=== PATIENT | male | born 1935 | race Caucasian/White ===

== ENCOUNTER 2022-02-14 12:12 | Inpatient (IN) ==
[2022-02-14] MEDS ORDERED: MAGNESIUM HYDROXIDE SUSP 30 ML UDCUP PO PRN (12:37)
[2022-02-14] MEDS ORDERED: ONDANSETRON 4 MG/2 ML VIAL IV PRN (12:37)
[2022-02-14 14:57] LABS: Basophils # 0.1 10*3/uL (0.0-0.2); Basophils % 1.3 % (0.0-0.8); Eosinophils # 0.8 10*3/uL (0.0-0.87); Eosinophils % 8.7 % (0.00-10.9); Hematocrit 30.1 VOL% (42.0-52.0); Hemoglobin 9.9 GM/DL (14.0-18.0); Immature Granulocytes % 1.8 %; Immature Granulocytes Absolute 0.17 #; Lymphocytes # 3.1 10*3/uL (1.4-4.0); Lymphocytes % 33.2 % (21.2-54.2); Mean Corpuscular HGB Conc 32.9 GM/DL (32-36); Mean Corpuscular Volume 91.8 FL (87-102); Mean Platelet Volume 9.1 FL (9.6-12.0); Monocytes # 0.9 10*3/uL (0.11-0.8); Monocytes % 9.6 % (1.7-12.7); Neutrophils % 45.4 % (38.7-73.9); Platelet Count 281 T/CUMM (130-400); Red Blood Count 3.28 MC/CUMM (3.8-5.5); White Blood Count 9.2 T/CUMM (4-12)
[2022-02-14] MEDS ORDERED: GABAPENTIN 100 MG CAPSULE PO SCH (15:00)
[2022-02-14 15:16] LABS: Alanine Aminotransferase 22 U/L (16-61); Albumin 3.1 G/DL (3.4-5.0); Alkaline Phosphatase 93 U/L (45-117); Aspartate Amino Transferase 22 U/L (0-37); Bilirubin,Total < 0.39 MG/DL (0.20-1.00); Blood Urea Nitrogen 41 MG/DL (7-18); Calcium 8.4 MG/DL (8.5-10.1); Carbon Dioxide 31 MMOL/L (21-32); Chloride 102 MMOL/L (98-107); Estimated Glom Filtration Rate 39 ML/MIN; Glucose 107 MG/DL (74-106); Osmolality,Calculated 284.7 MOS/KG (273-304); Potassium 4.1 MMOL/L (3.5-5.1); Sodium 138 MMOL/L (136-145); Total Protein 6.8 G/DL (6.4-8.2)
[2022-02-14] MEDS: gemfibroziL 600 MG TABLET PO SCH (16:00)
[2022-02-14] MEDS: SODIUM CHLORIDE 0.45% 1,000 ML IV SCH (16:00)
[2022-02-14] MEDS: cefTRIAXone 1,000 MG in SODIUM CHLORIDE 0.9% 100 ML IV SCH (16:00)
[2022-02-14] MEDS: TAMSULOSIN 0.4 MG CAPSULE PO SCH (20:22)
[2022-02-14] MEDS: NIACIN ER 500 MG TABLET PO SCH (20:22)
[2022-02-14] MEDS: GABAPENTIN 100 MG CAPSULE PO SCH (20:22)
[2022-02-14] MEDS: DOCUSATE SODIUM 100 MG CAPSULE PO SCH (20:22)
[2022-02-14] MEDS: ARIPiprazole 5 MG TABLET PO SCH (20:22)
[2022-02-15] MEDS: SODIUM CHLORIDE 0.45% 1,000 ML IV SCH ×2 (01:15→10:20)
[2022-02-15 04:39] LABS: Basophils # 0.1 10*3/uL (0.0-0.2); Eosinophils # 0.6 10*3/uL (0.0-0.87); Eosinophils % 8.3 % (0.00-10.9); Hematocrit 28.4 VOL% (42.0-52.0); Immature Granulocytes % 1.9 %; Immature Granulocytes Absolute 0.15 #; Lymphocytes # 2.7 10*3/uL (1.4-4.0); Lymphocytes % 34.7 % (21.2-54.2); Mean Corpuscular HGB Conc 31.7 GM/DL (32-36); Mean Corpuscular Volume 92.5 FL (87-102); Mean Platelet Volume 9.5 FL (9.6-12.0); Monocytes # 0.7 10*3/uL (0.11-0.8); Neutrophils % 45.1 % (38.7-73.9); Platelet Count 260 T/CUMM (130-400); Red Blood Count 3.07 MC/CUMM (3.8-5.5); White Blood Count 7.8 T/CUMM (4-12)
[2022-02-15 05:00] LABS: Risk Ratio 2.35; VLDL Cholesterol 24.4 MG/DL
[2022-02-15 05:05] LABS: Alanine Aminotransferase 19 U/L (16-61); Albumin 2.7 G/DL (3.4-5.0); Alkaline Phosphatase 85 U/L (45-117); Aspartate Amino Transferase 18 U/L (0-37); Bilirubin,Total < 0.39 MG/DL (0.20-1.00); Blood Urea Nitrogen 33 MG/DL (7-18); Calcium 7.9 MG/DL (8.5-10.1); Carbon Dioxide 28 MMOL/L (21-32); Chloride 104 MMOL/L (98-107); Estimated Glom Filtration Rate 45 ML/MIN; Glucose 88 MG/DL (74-106); Osmolality,Calculated 282.5 MOS/KG (273-304); Potassium 3.7 MMOL/L (3.5-5.1); Sodium 139 MMOL/L (136-145); Total Protein 6.1 G/DL (6.4-8.2)
[2022-02-15] MEDS: PANTOPRAZOLE 40 MG TABLET PO SCH (05:57)
[2022-02-15] MEDS ORDERED: LEVOTHYROXINE 125 MCG TABLET PO SCH (06:30)
[2022-02-15 06:32] LABS: Sedimentation Rate-Westergren 37 MM/HR (0-20)
[2022-02-15] MEDS ORDERED: ENOXAPARIN 30 MG/0.3 ML SYRINGE SUBCUT SCH (09:00)
[2022-02-15] MEDS: DOCUSATE SODIUM 100 MG CAPSULE PO SCH ×2 (09:53→21:19)
[2022-02-15] MEDS: gemfibroziL 600 MG TABLET PO SCH ×2 (09:53→17:02)
[2022-02-15] MEDS: GABAPENTIN 100 MG CAPSULE PO SCH ×4 (09:54→21:19)
[2022-02-15] MEDS: VENLAFAXINE XR 75 MG CAPSULE PO SCH (09:54)
[2022-02-15] MEDS: TAMSULOSIN 0.4 MG CAPSULE PO SCH ×2 (09:54→21:19)
[2022-02-15] MEDS: METOPROLOL SUCCINATE XL 25 MG TABLET PO SCH (09:54)
[2022-02-15] MEDS: fentaNYL 50 MCG/HR PATCH TRANSDERM SCH (10:19)
[2022-02-15] MEDS ORDERED: KETAMINE 500 MG/10 ML VIAL ONE (12:00)
[2022-02-15] MEDS ORDERED: LACTATED RINGERS 1,000 ML IV SCH (12:00)
[2022-02-15] MEDS ORDERED: fentaNYL 100 MCG/2 ML VIAL ONE (12:00)
[2022-02-15] MEDS ORDERED: ETOMIDATE 40 MG/20 ML VIAL IV ONE (12:03)
[2022-02-15] MEDS ORDERED: SEVOFLURANE 1 UNIT/15 MINUTE INH ONE (12:03)
[2022-02-15] MEDS ORDERED: LIDOCAINE 2% 5 ML VIAL ONE (12:03)
[2022-02-15] MEDS ORDERED: propofoL 200 MG/20 ML VIAL IV ONE (12:03)
[2022-02-15] MEDS ORDERED: HYDROmorphone 1 MG/1 ML SYRINGE ONE (13:07)
[2022-02-15] MEDS ORDERED: HYDROmorphone 1 MG/1 ML SYRINGE IV PRN (13:12)
[2022-02-15] MEDS: cefTRIAXone 1,000 MG in SODIUM CHLORIDE 0.9% 100 ML IV SCH (14:58)
[2022-02-15] MEDS: oxyCODONE IR 5 MG TABLET PO PRN ×2 (15:00→22:44)
[2022-02-15] MEDS: ARIPiprazole 5 MG TABLET PO SCH (21:18)
[2022-02-15] MEDS: NIACIN ER 500 MG TABLET PO SCH (21:19)
[2022-02-16 04:53] LABS: Basophils # 0.1 10*3/uL (0.0-0.2); Basophils % 0.9 % (0.0-0.8); Eosinophils # 0.6 10*3/uL (0.0-0.87); Eosinophils % 8.1 % (0.00-10.9); Hematocrit 30.3 VOL% (42.0-52.0); Hemoglobin 9.5 GM/DL (14.0-18.0); Immature Granulocytes % 1.9 %; Immature Granulocytes Absolute 0.14 #; Lymphocytes # 2.6 10*3/uL (1.4-4.0); Lymphocytes % 35.1 % (21.2-54.2); Mean Corpuscular HGB Conc 31.4 GM/DL (32-36); Mean Corpuscular Volume 93.5 FL (87-102); Mean Platelet Volume 9.2 FL (9.6-12.0); Monocytes # 0.6 10*3/uL (0.11-0.8); Monocytes % 7.4 % (1.7-12.7); Neutrophils % 46.6 % (38.7-73.9); Platelet Count 261 T/CUMM (130-400); Red Blood Count 3.24 MC/CUMM (3.8-5.5); White Blood Count 7.4 T/CUMM (4-12)
[2022-02-16 05:23] LABS: Calcium 8.1 MG/DL (8.5-10.1); Osmolality,Calculated 282.3 MOS/KG (273-304)
[2022-02-16] MEDS: LEVOTHYROXINE 137 MCG TABLET PO SCH (06:34)
[2022-02-16] MEDS: PANTOPRAZOLE 40 MG TABLET PO SCH (06:34)
[2022-02-16] MEDS: oxyCODONE IR 5 MG TABLET PO PRN ×2 (07:10→14:20)
[2022-02-16] MEDS: gemfibroziL 600 MG TABLET PO SCH ×2 (10:28→18:32)
[2022-02-16] MEDS: METOPROLOL SUCCINATE XL 25 MG TABLET PO SCH (10:29)
[2022-02-16] MEDS: VENLAFAXINE XR 75 MG CAPSULE PO SCH (10:29)
[2022-02-16] MEDS: DOCUSATE SODIUM 100 MG CAPSULE PO SCH ×2 (10:29→20:40)
[2022-02-16] MEDS: GABAPENTIN 100 MG CAPSULE PO SCH ×4 (10:29→20:40)
[2022-02-16] MEDS: TAMSULOSIN 0.4 MG CAPSULE PO SCH ×2 (10:29→20:40)
[2022-02-16] MEDS: SODIUM CHLORIDE 0.45% 1,000 ML IV SCH ×2 (14:19)
[2022-02-16] MEDS: cefTRIAXone 1,000 MG in SODIUM CHLORIDE 0.9% 100 ML IV SCH (14:19)
[2022-02-16] MEDS: ARIPiprazole 5 MG TABLET PO SCH (20:40)
[2022-02-16] MEDS: ACETAMINOPHEN 325 MG TABLET PO PRN (20:40)
[2022-02-16] MEDS: NIACIN ER 500 MG TABLET PO SCH (20:40)
[2022-02-16 23:00] LABS: RBC,Urine 1 /HPF (0-4)
[2022-02-16 23:01] LABS: Bilirubin,Urine Negative (Negative); Blood, Urine Negative (Negative); Glucose,Urine (UA) Negative (Negative); Ketones,Urine Negative (Negative); Nitrite,Urine Negative (Negative); Protein,Urine Negative (Negative); Urine Appearance Clear (Clear); Urine Color Yellow (Yellow); Urine Specific Gravity 1.015 (1.001-1.035); Urine Urobilinogen 0.2 eU/dL (<2.0)
[2022-02-17] MEDS: SODIUM CHLORIDE 0.45% 1,000 ML IV SCH ×3 (00:10→21:33)
[2022-02-17 05:52] LABS: Basophils # 0.1 10*3/uL (0.0-0.2); Basophils % 1.2 % (0.0-0.8); Eosinophils # 0.5 10*3/uL (0.0-0.87); Eosinophils % 8.1 % (0.00-10.9); Hematocrit 29.1 VOL% (42.0-52.0); Hemoglobin 9.2 GM/DL (14.0-18.0); Immature Granulocytes Absolute 0.13 #; Lymphocytes # 2.6 10*3/uL (1.4-4.0); Lymphocytes % 40.6 % (21.2-54.2); Mean Corpuscular HGB Conc 31.6 GM/DL (32-36); Mean Corpuscular Volume 92.4 FL (87-102); Mean Platelet Volume 9.6 FL (9.6-12.0); Monocytes # 0.6 10*3/uL (0.11-0.8); Monocytes % 8.9 % (1.7-12.7); Neutrophils % 39.2 % (38.7-73.9); Platelet Count 257 T/CUMM (130-400); Red Blood Count 3.15 MC/CUMM (3.8-5.5); Red Cell Distribution Width 13.8 % (9.3-17.3); White Blood Count 6.5 T/CUMM (4-12)
[2022-02-17] MEDS: LEVOTHYROXINE 137 MCG TABLET PO SCH (06:13)
[2022-02-17] MEDS: PANTOPRAZOLE 40 MG TABLET PO SCH (06:13)
[2022-02-17 06:35] LABS: Alanine Aminotransferase 14 U/L (16-61); Albumin 2.6 G/DL (3.4-5.0); Alkaline Phosphatase 81 U/L (45-117); Aspartate Amino Transferase 17 U/L (0-37); Bilirubin,Total < 0.39 MG/DL (0.20-1.00); Blood Urea Nitrogen 15 MG/DL (7-18); Calcium 7.9 MG/DL (8.5-10.1); Carbon Dioxide 26 MMOL/L (21-32); Chloride 107 MMOL/L (98-107); Estimated Glom Filtration Rate 70 ML/MIN; Glucose 93 MG/DL (74-106); Osmolality,Calculated 279.4 MOS/KG (273-304); Potassium 3.7 MMOL/L (3.5-5.1); Sodium 140 MMOL/L (136-145); Total Protein 5.8 G/DL (6.4-8.2)
[2022-02-17] MEDS: TAMSULOSIN 0.4 MG CAPSULE PO SCH ×2 (09:16→21:34)
[2022-02-17] MEDS: gemfibroziL 600 MG TABLET PO SCH ×2 (09:16→16:52)
[2022-02-17] MEDS: METOPROLOL SUCCINATE XL 25 MG TABLET PO SCH (09:16)
[2022-02-17] MEDS: DOCUSATE SODIUM 100 MG CAPSULE PO SCH ×2 (09:16→21:34)
[2022-02-17] MEDS: GABAPENTIN 100 MG CAPSULE PO SCH ×4 (09:17→21:35)
[2022-02-17] MEDS: VENLAFAXINE XR 75 MG CAPSULE PO SCH (09:20)
[2022-02-17] MEDS ORDERED: TUBERCULIN SKIN TEST 0.1 ML SYRINGE INTRADERM ONE (10:00)
[2022-02-17] MEDS: oxyCODONE IR 5 MG TABLET PO PRN ×2 (14:49→22:45)
[2022-02-17] MEDS: cefTRIAXone 1,000 MG in SODIUM CHLORIDE 0.9% 100 ML IV SCH (14:49)
[2022-02-17] MEDS: cloNIDine 0.1 MG TABLET PO SCH (21:34)
[2022-02-17] MEDS: NIACIN ER 500 MG TABLET PO SCH (21:34)
[2022-02-17] MEDS: ARIPiprazole 5 MG TABLET PO SCH (21:34)
[2022-02-18 05:52] LABS: Basophils # 0.1 10*3/uL (0.0-0.2); Eosinophils # 0.5 10*3/uL (0.0-0.87); Eosinophils % 5.8 % (0.00-10.9); Hematocrit 28.5 VOL% (42.0-52.0); Hemoglobin 9.2 GM/DL (14.0-18.0); Immature Granulocytes % 2.9 %; Immature Granulocytes Absolute 0.25 #; Lymphocytes % 34.2 % (21.2-54.2); Mean Corpuscular HGB Conc 32.3 GM/DL (32-36); Mean Corpuscular Volume 93.4 FL (87-102); Mean Platelet Volume 9.7 FL (9.6-12.0); Monocytes # 0.8 10*3/uL (0.11-0.8); Monocytes % 9.1 % (1.7-12.7); Platelet Count 272 T/CUMM (130-400); Red Blood Count 3.05 MC/CUMM (3.8-5.5); White Blood Count 8.8 T/CUMM (4-12)
[2022-02-18 06:06] LABS: Calcium 8.5 MG/DL (8.5-10.1); Osmolality,Calculated 275.7 MOS/KG (273-304); Potassium 4.1 MMOL/L (3.5-5.1)
[2022-02-18] MEDS: LEVOTHYROXINE 137 MCG TABLET PO SCH (06:10)
[2022-02-18] MEDS: PANTOPRAZOLE 40 MG TABLET PO SCH (06:10)
[2022-02-18] MEDS: SODIUM CHLORIDE 0.45% 1,000 ML IV SCH ×2 (09:08→22:12)
[2022-02-18] MEDS: TAMSULOSIN 0.4 MG CAPSULE PO SCH ×2 (09:09→22:13)
[2022-02-18] MEDS: gemfibroziL 600 MG TABLET PO SCH ×2 (09:09→15:53)
[2022-02-18] MEDS: DOCUSATE SODIUM 100 MG CAPSULE PO SCH ×2 (09:09→22:13)
[2022-02-18] MEDS: GABAPENTIN 100 MG CAPSULE PO SCH ×4 (09:10→22:13)
[2022-02-18] MEDS: fentaNYL 50 MCG/HR PATCH TRANSDERM SCH (09:10)
[2022-02-18] MEDS: METOPROLOL SUCCINATE XL 25 MG TABLET PO SCH (09:10)
[2022-02-18] MEDS: VENLAFAXINE XR 75 MG CAPSULE PO SCH (09:10)
[2022-02-18] MEDS: cefTRIAXone 1,000 MG in SODIUM CHLORIDE 0.9% 100 ML IV SCH (15:53)
[2022-02-18] MEDS: oxyCODONE IR 5 MG TABLET PO PRN (17:45)
[2022-02-18] MEDS: cloNIDine 0.1 MG TABLET PO SCH (22:13)
[2022-02-18] MEDS: NIACIN ER 500 MG TABLET PO SCH (22:13)
[2022-02-18] MEDS: ARIPiprazole 5 MG TABLET PO SCH (22:13)
[2022-02-19 05:14] LABS: Basophils # 0.1 10*3/uL (0.0-0.2); Basophils % 1.2 % (0.0-0.8); Eosinophils # 0.6 10*3/uL (0.0-0.87); Eosinophils % 6.7 % (0.00-10.9); Hematocrit 30.6 VOL% (42.0-52.0); Hemoglobin 9.7 GM/DL (14.0-18.0); Immature Granulocytes % 2.2 %; Immature Granulocytes Absolute 0.21 #; Lymphocytes # 2.8 10*3/uL (1.4-4.0); Lymphocytes % 29.9 % (21.2-54.2); Mean Corpuscular HGB Conc 31.7 GM/DL (32-36); Mean Corpuscular Volume 92.7 FL (87-102); Mean Platelet Volume 9.6 FL (9.6-12.0); Monocytes # 0.7 10*3/uL (0.11-0.8); Monocytes % 7.8 % (1.7-12.7); Neutrophils % 52.2 % (38.7-73.9); Platelet Count 285 T/CUMM (130-400); Red Cell Distribution Width 14.1 % (9.3-17.3); White Blood Count 9.5 T/CUMM (4-12)
[2022-02-19 05:35] LABS: Calcium 8.5 MG/DL (8.5-10.1); Osmolality,Calculated 281.4 MOS/KG (273-304)
[2022-02-19] MEDS: PANTOPRAZOLE 40 MG TABLET PO SCH (05:51)
[2022-02-19] MEDS: LEVOTHYROXINE 137 MCG TABLET PO SCH (05:51)
[2022-02-19] MEDS: SODIUM CHLORIDE 0.45% 1,000 ML IV SCH ×2 (09:22→21:15)
[2022-02-19] MEDS: VENLAFAXINE XR 75 MG CAPSULE PO SCH (09:23)
[2022-02-19] MEDS: TAMSULOSIN 0.4 MG CAPSULE PO SCH ×2 (09:23→21:15)
[2022-02-19] MEDS: gemfibroziL 600 MG TABLET PO SCH ×2 (09:23→17:07)
[2022-02-19] MEDS: DOCUSATE SODIUM 100 MG CAPSULE PO SCH ×2 (09:23→21:15)
[2022-02-19] MEDS: GABAPENTIN 100 MG CAPSULE PO SCH ×4 (09:23→21:15)
[2022-02-19] MEDS: METOPROLOL SUCCINATE XL 25 MG TABLET PO SCH (09:23)
[2022-02-19] MEDS: cefTRIAXone 1,000 MG in SODIUM CHLORIDE 0.9% 100 ML IV SCH (15:03)
[2022-02-19] MEDS: ARIPiprazole 5 MG TABLET PO SCH (21:15)
[2022-02-19] MEDS: NIACIN ER 500 MG TABLET PO SCH (21:16)
[2022-02-19] MEDS: oxyCODONE IR 5 MG TABLET PO PRN (21:16)
[2022-02-19] MEDS: cloNIDine 0.1 MG TABLET PO SCH (21:16)
[2022-02-20 04:59] LABS: Basophils # 0.1 10*3/uL (0.0-0.2); Basophils % 1.1 % (0.0-0.8); Eosinophils # 0.7 10*3/uL (0.0-0.87); Eosinophils % 7.2 % (0.00-10.9); Hematocrit 27.1 VOL% (42.0-52.0); Hemoglobin 8.4 GM/DL (14.0-18.0); Immature Granulocytes % 2.2 %; Lymphocytes # 3.2 10*3/uL (1.4-4.0); Lymphocytes % 34.7 % (21.2-54.2); Mean Corpuscular Volume 95.1 FL (87-102); Mean Platelet Volume 9.6 FL (9.6-12.0); Monocytes # 0.8 10*3/uL (0.11-0.8); Monocytes % 9.2 % (1.7-12.7); Neutrophils % 45.6 % (38.7-73.9); Platelet Count 268 T/CUMM (130-400); Red Blood Count 2.85 MC/CUMM (3.8-5.5); Red Cell Distribution Width 14.5 % (9.3-17.3); White Blood Count 9.1 T/CUMM (4-12)
[2022-02-20 05:19] LABS: Calcium 8.1 MG/DL (8.5-10.1); Osmolality,Calculated 280.5 MOS/KG (273-304); Potassium 3.8 MMOL/L (3.5-5.1)
[2022-02-20] MEDS: LEVOTHYROXINE 137 MCG TABLET PO SCH (05:49)
[2022-02-20] MEDS: PANTOPRAZOLE 40 MG TABLET PO SCH (05:49)
[2022-02-20] MEDS: GABAPENTIN 100 MG CAPSULE PO SCH ×4 (09:24→20:59)
[2022-02-20] MEDS: gemfibroziL 600 MG TABLET PO SCH ×2 (09:24→17:55)
[2022-02-20] MEDS: TAMSULOSIN 0.4 MG CAPSULE PO SCH ×2 (09:24→20:58)
[2022-02-20] MEDS: METOPROLOL SUCCINATE XL 25 MG TABLET PO SCH (09:24)
[2022-02-20] MEDS: VENLAFAXINE XR 75 MG CAPSULE PO SCH (09:24)
[2022-02-20] MEDS: DOCUSATE SODIUM 100 MG CAPSULE PO SCH ×2 (09:24→20:58)
[2022-02-20] MEDS: SODIUM CHLORIDE 0.45% 1,000 ML IV SCH ×2 (10:00→23:00)
[2022-02-20] MEDS: cefTRIAXone 1,000 MG in SODIUM CHLORIDE 0.9% 100 ML IV SCH (14:57)
[2022-02-20] MEDS: ACETAMINOPHEN 325 MG TABLET PO PRN (15:30)
[2022-02-20] MEDS: ARIPiprazole 5 MG TABLET PO SCH (20:58)
[2022-02-20] MEDS: oxyCODONE IR 5 MG TABLET PO PRN (20:59)
[2022-02-20] MEDS: cloNIDine 0.1 MG TABLET PO SCH (21:00)
[2022-02-20] MEDS: NIACIN ER 500 MG TABLET PO SCH (23:01)
[2022-02-21] MEDS: SODIUM CHLORIDE 0.45% 1,000 ML IV SCH ×3 (06:33→21:04)
[2022-02-21] MEDS: PANTOPRAZOLE 40 MG TABLET PO SCH (06:34)
[2022-02-21] MEDS: LEVOTHYROXINE 137 MCG TABLET PO SCH (06:34)
[2022-02-21] MEDS: gemfibroziL 600 MG TABLET PO SCH ×2 (06:34→15:56)
[2022-02-21] MEDS: LEVOFLOXACIN 500 MG TABLET PO SCH (10:34)
[2022-02-21] MEDS: DOCUSATE SODIUM 100 MG CAPSULE PO SCH ×2 (10:34→21:05)
[2022-02-21] MEDS: METOPROLOL SUCCINATE XL 25 MG TABLET PO SCH (10:35)
[2022-02-21] MEDS: fentaNYL 50 MCG/HR PATCH TRANSDERM SCH (10:35)
[2022-02-21] MEDS: GABAPENTIN 100 MG CAPSULE PO SCH ×4 (10:35→21:05)
[2022-02-21] MEDS: TAMSULOSIN 0.4 MG CAPSULE PO SCH ×2 (10:35→21:05)
[2022-02-21] MEDS: VENLAFAXINE XR 75 MG CAPSULE PO SCH (15:56)
[2022-02-21] MEDS: cefTRIAXone 1,000 MG in SODIUM CHLORIDE 0.9% 100 ML IV SCH (15:56)
[2022-02-21] MEDS: ZINC OXIDE PASTE 113 GM TUBE TOP SCH ×2 (15:58→21:15)
[2022-02-21] MEDS: ARIPiprazole 5 MG TABLET PO SCH (21:05)
[2022-02-21] MEDS: NIACIN ER 500 MG TABLET PO SCH (21:05)
[2022-02-21] MEDS: cloNIDine 0.1 MG TABLET PO SCH (21:05)
[2022-02-21] MEDS: oxyCODONE IR 5 MG TABLET PO PRN (21:12)
[2022-02-22] MEDS: PANTOPRAZOLE 40 MG TABLET PO SCH (05:46)
[2022-02-22] MEDS: LEVOTHYROXINE 137 MCG TABLET PO SCH (05:46)
[2022-02-22] MEDS: LEVOFLOXACIN 500 MG TABLET PO SCH (07:40)
[2022-02-22] MEDS: gemfibroziL 600 MG TABLET PO SCH (07:41)
[2022-02-22] MEDS: GABAPENTIN 100 MG CAPSULE PO SCH (08:32)
[2022-02-22] MEDS: DOCUSATE SODIUM 100 MG CAPSULE PO SCH (08:32)
[2022-02-22] MEDS: METOPROLOL SUCCINATE XL 25 MG TABLET PO SCH (08:32)
[2022-02-22] MEDS: TAMSULOSIN 0.4 MG CAPSULE PO SCH (08:32)
[2022-02-22] MEDS: VENLAFAXINE XR 75 MG CAPSULE PO SCH (08:32)
[2022-02-22] MEDS: SODIUM CHLORIDE 0.45% 1,000 ML IV SCH (08:36)
[2022-02-22] MEDS: ZINC OXIDE PASTE 113 GM TUBE TOP SCH (11:32)
[2022-02-22 12:30] VITALS: BP 115/55
== END 2022-02-22 11:40 | disposition swing bed (61) | DRG 264 ==
LOC: N.5E 13:33
PROVIDERS: ADMIT Family Medicine; ATTEND Family Medicine